=== PATIENT | male | born 1960 | race Caucasian/White ===

== ENCOUNTER 2017-11-15 18:54 | Emergency (ER) | payer OTHER ==
[2017-11-15] MEDS: NORCO, ANEXSIA 5/325MG TABLET (HYDROcodone/ACETAMINOPHEN) PO (20:47)
== END 2017-11-15 20:58 | disposition home or self-care (01) ==
LOC: M ED 18:54
DX: S86.912A Strain of unspecified muscle(s) and tendon(s) at lower leg level, left leg, initial encounter (principal); X50.9XXA Other and unspecified overexertion or strenuous movements or postures, initial encounter; Y92.89 Other specified places as the place of occurrence of the external cause; G43.909 Migraine, unspecified, not intractable, without status migrainosus; Z79.899 Other long term (current) drug therapy; Z88.2 Allergy status to sulfonamides; Z88.8 Allergy status to other drugs, medicaments and biological substances
CPT/HCPCS: 93971

== ENCOUNTER → 2018-05-09 | Outpatient (CLI) | payer OTHER ==
[~2018-05-09] MED LIST: CETI10TA; DICY20TA11; DOXY100C37; GASTROGRAFIN SOLUTION 30ML (Q9963) As Ordered ONE; ISOVUE-370 76% 100ML VIAL (Q9967) As Ordered ONE; SUMA6INJ16; VIAG100T
[2018-05-09 16:26] LABS: BASO % 0.4 % (0.0-1.0); EOS # 0.2 10^3/uL (0.0-0.50); EOS % 2.5 % (0.0-3.0); HEMATOCRIT 26.9 % (42.0-52.0); HEMOGLOBIN 8.2 g/dl (13.5-17.5); LYMPH # 1.9 10^3/uL (1.5-4.5); LYMPH % 19.7 % (24.0-44.0); MEAN CORPUSCULAR HEMOGLOBIN 23.9 pg (27.0-33.0); MEAN CORPUSCULAR HGB CONC 30.5 g/dl (32.0-36.5); MEAN CORPUSCULAR VOLUME 78.4 fl (80.0-96.0); MONO # 0.9 10^3/uL (0.0-0.8); MONO % 9.6 % (0.0-5.0); NEUTROPHILS # 6.5 10^3/uL (1.8-7.7); NEUTROPHILS % 67.5 % (36.0-66.0); PLATELET COUNT, AUTOMATED 371 10^3/uL (150-450); RED BLOOD COUNT 3.43 10^6/uL (4.30-6.10); WHITE BLOOD COUNT 9.6 10^3/uL (4.0-10.0)
[2018-05-09 16:53] LABS: ALBUMIN 3.4 GM/DL (3.2-5.2); ALT/SGPT 13 U/L (12-78); BILIRUBIN,DIRECT 0.1 MG/DL (0.0-0.2); BILIRUBIN,TOTAL 0.5 MG/DL (0.2-1.0); BLOOD UREA NITROGEN 12 MG/DL (7-18); CREATININE FOR GFR 0.84 MG/DL (0.70-1.30); FERRITIN 3 NG/ML (26-388); GLOMERULAR FILTRATION RATE > 60.0 (>56); IRON (FE) 15 UG/DL (65-175); PERCENT SATURATION 4.1 % (19.7-50.0); TOTAL IRON BINDING CAPACITY 370 UG/DL (250-450); TOTAL PROTEIN 6.5 GM/DL (6.4-8.2)
[2018-05-09 17:00] LABS: H PYLORI QUALITATIVE IgG NEGATIVE (NEGATIVE)
[2018-05-09 17:02] LABS: FOLATE 8.6 NG/ML
--- NOTE | 2018-05-10 09:57 | REP ---
Clinical: Epigastric pain. Technique: Axial contrast enhanced images from the lung bases to the pubic symphysis using oral (per protocol) and 100 ml Isovue 370 injury material with delayed images of the abdomen as well as coronal and sagittal re-formations. Findings: There is a irregular mucosal thickening involving the descending colon/cecum with significant adjacent adenopathy and mild stranding most compatible with acute neoplasm and correlation is required (images 80-98) Liver demonstrates innumerable scattered hypodensities consistent with cysts measuring up to approximately 2.7 cm in the left lateral segment and inferior right posterior segment. No obvious focal aggressive hepatic lesions are identified. Spleen, pancreas, gallbladder, bilateral adrenal glands and kidneys are normal. Pelvis demonstrates normal bladder and prostate/seminal vesicles. No pelvic fluid or ascites. No obvious retroperitoneal adenopathy. Abdominal aorta and vasculature without aneurysm or dissection. Musculoskeletal structures are intact. Lung bases are clear. Impression: 1. Irregular asymmetric mucosal thickening of the distal descending colon/cecum with significant adjacent adenopathy and stranding most compatible with acute colon cancer. Immediate attention and correlation is required. 2. Hepatic lesions remains stable on delayed imaging and most compatible with cysts. Electronically Signed by Mustapha Earl MD 05/10/2018 09:49 A
[2018-05-11 10:41] LABS: TISSUE TRANSGLUTAMINASE IgA <2 U/mL (0-3)
[2018-05-11 10:50] LABS: VITAMIN B12 LEVEL 344 PG/ML (232-1245)
== END ==
LOC: M RAD 15:15
PROVIDERS: ATTEND Internal Medicine Gastroenterology
DX: R10.13 Epigastric pain (principal)

== ENCOUNTER 2018-05-23 09:36 | Day surgery (SDC) | payer OTHER ==
[~2018-05-23] VITALS: Ht 188 cm; Wt 81.6 kg
[~2018-05-23 09:36] MED LIST changes: -CETI10TA; +CETI10TA PO; -DICY20TA11; +DICY20TA11 PO; -GASTROGRAFIN SOLUTION 30ML (Q9963) As Ordered ONE; -ISOVUE-370 76% 100ML VIAL (Q9967) As Ordered ONE; +LIDOCAINE 2% INJ 100 MG/5 ML SDV (FOR ANES.) As Ordered ONE; +PANT40TA3 PO; +PROPOFOL 200 MG/20 ML VIAL As Ordered ONE
[2018-05-23] MEDS ORDERED: NS 1,000 ML IV ONE (11:00)
--- NOTE | 2018-05-23 13:35 | ROOR ---
Patient Name: Basim Stockton Procedure Date: 05/23/2018 12:47 PM Date of : 1960 Age: 57 Room: [facility] Gender: Male Note Status: Finalized Procedure: Upper GI endoscopy Indications: Epigastric abdominal pain, Iron deficiency anemia Providers: Robin Campo MD Referring MD: CHEN SIDDIQUI MD Requesting Provider: Medicines: Monitored Anesthesia Care Complications: No immediate complications. Procedure: Pre-Anesthesia Assessment: - Prior to the procedure, a History and Physical was performed, and patient medications and allergies were reviewed. The patient is competent. The risks and benefits of the procedure and the sedation options and risks were discussed with the patient. All questions were answered and informed consent was obtained. Patient identification and proposed procedure were verified by the physician, the nurse and the anesthesiologist in the procedure room. Mental Status Examination: alert and oriented. Airway Examination: normal oropharyngeal airway and neck mobility. Respiratory Examination: clear to auscultation. CV Examination: normal. Prophylactic Antibiotics: The patient does not require prophylactic antibiotics. Prior Anticoagulants: The patient has taken no previous anticoagulant or antiplatelet agents. ASA Grade Assessment: II - A patient with mild systemic disease. After reviewing the risks and benefits, the patient was deemed in satisfactory condition to undergo the procedure. The anesthesia plan was to use monitored anesthesia care (MAC). Immediately prior to administration of medications, the patient was re-assessed for adequacy to receive sedatives. The heart rate, respiratory rate, oxygen saturations, blood pressure, adequacy of pulmonary ventilation, and response to care were monitored throughout the procedure. The physical status of the patient was re-assessed after the procedure. The Endoscope was introduced through the mouth, and advanced to the second part of duodenum. The upper GI endoscopy was accomplished without difficulty. The patient tolerated the procedure well. Findings: LA Grade A (one or more mucosal breaks less than 5 mm, not extending between tops of 2 mucosal folds) esophagitis with no bleeding was found in the distal esophagus. Biopsies were taken with a cold forceps for histology. Verification of patient identification for the specimen was done by the physician and nurse using the patient's name, date and medical record number. Estimated blood loss was minimal. The Z-line was irregular and was found 42 cm from the incisors. The entire examined stomach was normal. The duodenal bulb and second portion of the duodenum were normal. Biopsies for histology were taken with a cold forceps for evaluation of celiac disease. Impression: - LA Grade A reflux esophagitis. Rule out Araujo's esophagus. Biopsied. - Z-line irregular, 42 cm from the incisors. - Normal stomach. - Normal duodenal bulb and second portion of the duodenum. Biopsied. Recommendation: - Patient has a contact number available for emergencies. The signs and symptoms of potential delayed complications were discussed with the patient. Return to normal activities tomorrow. Written discharge instructions were provided to the patient. - Resume previous diet. - Continue present medications. - Await pathology results. - Based on the biopsy results you will receive a phone call from GI clinic in 2-3 weeks to review the pathology results AND/OR your results will be faxed to your Primary care physician. - Return to primary care physician. Robin Campo MD Robin Campo MD 05/23/2018 1:34:45 PM This report has been signed electronically. Number of Addenda: 0 Note Initiated On: 05/23/2018 12:47 PM Estimated Blood Loss: Estimated blood loss was minimal.
[2018-05-23 14:00] VITALS: BP 113/77
--- NOTE | 2018-05-23 14:10 | ROOR ---
Patient Name: Basim Stockton Procedure Date: 05/23/2018 12:47 PM Date of : 1960 Age: 57 Room: [facility] Gender: Male Note Status: Finalized Procedure: Colonoscopy Indications: Iron deficiency anemia, Abnormal CT of the GI tract Providers: Robin Campo MD Referring MD: CHEN SIDDIQUI MD Requesting Provider: Medicines: Monitored Anesthesia Care Complications: No immediate complications. Procedure: Pre-Anesthesia Assessment: - Prior to the procedure, a History and Physical was performed, and patient medications and allergies were reviewed. The patient is competent. The risks and benefits of the procedure and the sedation options and risks were discussed with the patient. All questions were answered and informed consent was obtained. Patient identification and proposed procedure were verified by the physician, the nurse and the anesthesiologist in the procedure room. Mental Status Examination: alert and oriented. Airway Examination: normal oropharyngeal airway and neck mobility. Respiratory Examination: clear to auscultation. CV Examination: normal. Prophylactic Antibiotics: The patient does not require prophylactic antibiotics. Prior Anticoagulants: The patient has taken no previous anticoagulant or antiplatelet agents. ASA Grade Assessment: II - A patient with mild systemic disease. After reviewing the risks and benefits, the patient was deemed in satisfactory condition to undergo the procedure. The anesthesia plan was to use monitored anesthesia care (MAC). Immediately prior to administration of medications, the patient was re-assessed for adequacy to receive sedatives. The heart rate, respiratory rate, oxygen saturations, blood pressure, adequacy of pulmonary ventilation, and response to care were monitored throughout the procedure. The physical status of the patient was re-assessed after the procedure. The Colonoscope was introduced through the anus and advanced to the terminal ileum, with identification of the appendiceal orifice and IC valve. The colonoscopy was performed without difficulty. The patient tolerated the procedure well. The quality of the bowel preparation was good. The terminal ileum, ileocecal valve, appendiceal orifice, and rectum were photographed. Scope insertion time was 3 minutes. Scope withdrawal time was 9 minutes. The total duration of the procedure was 12 minutes. Findings: The perianal and digital rectal examinations were normal. The terminal ileum appeared normal. A fungating, infiltrative and ulcerated partially obstructing large mass was found in the proximal ascending colon. The mass was circumferential. The mass measured five cm in length. In addition, its diameter measured fifteen mm. Oozing was present. This was biopsied with a cold forceps for histology. Verification of patient identification for the specimen was done by the physician and nurse using the patient's name, date and medical record number. Estimated blood loss was minimal. A 4 mm polyp was found in the descending colon. The polyp was sessile. The polyp was removed with a cold biopsy forceps. Resection and retrieval were complete. Three sessile polyps were found in the recto-sigmoid colon. The polyps were 3 to 4 mm in size. These polyps were removed with a cold biopsy forceps. Resection and retrieval were complete. Non-bleeding external and internal hemorrhoids were found during retroflexion. The hemorrhoids were medium-sized. Impression: - The examined portion of the ileum was normal. - Likely malignant partially obstructing tumor in the proximal ascending colon. Biopsied. - One 4 mm polyp in the descending colon, removed with a cold biopsy forceps. Resected and retrieved. - Three 3 to 4 mm polyps at the recto-sigmoid colon, removed with a cold biopsy forceps. Resected and retrieved. - Non-bleeding external and internal hemorrhoids. Recommendation: - Patient has a contact number available for emergencies. The signs and symptoms of potential delayed complications were discussed with the patient. Return to normal activities tomorrow. Written discharge instructions were provided to the patient. - Resume previous diet. - Continue present medications. - Await pathology results. Further management based on the biopsy results. - Repeat colonoscopy in 1 year for surveillance based on pathology results and Clinical course.. - Based on the biopsy results you will receive a phone call from GI clinic in 2-3 weeks to review the pathology results AND/OR your results will be faxed to your Primary care physician. - Return to primary care physician. Robin Campo MD Robin Campo MD 05/23/2018 2:09:50 PM This report has been signed electronically. Number of Addenda: 0 Note Initiated On: 05/23/2018 12:47 PM Estimated Blood Loss: Estimated blood loss was minimal.
== END 2018-05-23 14:33 | disposition home or self-care (01) ==
LOC: M OPP 09:36
PROVIDERS: ATTEND Internal Medicine Gastroenterology
DX: K64.8 Other hemorrhoids (principal); C18.2 Malignant neoplasm of ascending colon; K56.690 Other partial intestinal obstruction; D12.4 Benign neoplasm of descending colon; K63.5 Polyp of colon; D50.9 Iron deficiency anemia, unspecified; R93.3 Abnormal findings on diagnostic imaging of other parts of digestive tract; K21.0 Gastro-esophageal reflux disease with esophagitis; K22.8 Other specified diseases of esophagus; R10.13 Epigastric pain; M12.9 Arthropathy, unspecified; G43.909 Migraine, unspecified, not intractable, without status migrainosus; Z79.899 Other long term (current) drug therapy; Z88.8 Allergy status to other drugs, medicaments and biological substances; Z91.048 Other nonmedicinal substance allergy status; Z80.3 Family history of malignant neoplasm of breast; Z80.42 Family history of malignant neoplasm of prostate

== ENCOUNTER → 2019-09-18 | Outpatient (CLI) | payer OTHER ==
[~2019-09-18] MED LIST changes: +CIAL5TAB PO; -LIDOCAINE 2% INJ 100 MG/5 ML SDV (FOR ANES.) As Ordered ONE; -PROPOFOL 200 MG/20 ML VIAL As Ordered ONE; +TAMS1CAP17 PO
== END ==
LOC: M LABSMTC 09:41
PROVIDERS: ATTEND Anesthesiology
DX: Z03.818 Encounter for observation for suspected exposure to other biological agents ruled out (principal); Z11.59 Encounter for screening for other viral diseases
CPT/HCPCS: C9803; U0003

== ENCOUNTER 2019-09-21 08:09 | Day surgery (SDC) | payer OTHER ==
[~2019-09-21] VITALS: Ht 188 cm; Wt 85.9 kg
[~2019-09-21 08:09] MED LIST changes: +LIDOCAINE 2% 100MG/5ML SDV (FOR ANES.) As Ordered ONE; +propofoL 200 MG/20 ML VIAL As Ordered ONE
[2019-09-21] MEDS ORDERED: NS 1,000 ML IV ONE (08:30)
--- NOTE | 2019-09-21 09:31 | ROOR ---
Patient Name: Basim Stockton Procedure Date: 09/21/2019 8:46 AM Date of : 1960 Age: 59 Room: [facility] Gender: Male Note Status: Finalized Procedure: Colonoscopy Indications: High risk colon cancer surveillance: Personal history of colon cancer Providers: Robin Campo MD Referring MD: CHERYL Rapp Requesting Provider: Medicines: Monitored Anesthesia Care Complications: No immediate complications. Procedure: Pre-Anesthesia Assessment: - Prior to the procedure, a History and Physical was performed, and patient medications and allergies were reviewed. The patient is competent. The risks and benefits of the procedure and the sedation options and risks were discussed with the patient. All questions were answered and informed consent was obtained. Patient identification and proposed procedure were verified by the physician, the nurse and the anesthesiologist in the procedure room. Mental Status Examination: alert and oriented. Airway Examination: normal oropharyngeal airway and neck mobility. CV Examination: normal. Prophylactic Antibiotics: The patient does not require prophylactic antibiotics. Prior Anticoagulants: The patient has taken no previous anticoagulant or antiplatelet agents. ASA Grade Assessment: II - A patient with mild systemic disease. After reviewing the risks and benefits, the patient was deemed in satisfactory condition to undergo the procedure. The anesthesia plan was to use monitored anesthesia care (MAC). Immediately prior to administration of medications, the patient was re-assessed for adequacy to receive sedatives. The heart rate, respiratory rate, oxygen saturations, blood pressure, adequacy of pulmonary ventilation, and response to care were monitored throughout the procedure. The physical status of the patient was re-assessed after the procedure. The Colonoscope was introduced through the anus and advanced to the ileocolonic anastomosis. The colonoscopy was performed without difficulty. The patient tolerated the procedure well. The quality of the bowel preparation was good. The terminal ileum, ileocecal valve, appendiceal orifice, and rectum were photographed. Scope insertion time was 2 minutes. Scope withdrawal time was 8 minutes. The total duration of the procedure was 10 minutes. Findings: The perianal and digital rectal examinations were normal. The david-terminal ileum appeared normal. There was evidence of a prior functional end-to-end ileo-colonic anastomosis in the ascending colon. This was patent and was characterized by healthy appearing mucosa, an intact appearance and visible sutures. The anastomosis was traversed. Biopsies were taken with a cold forceps for histology. Verification of patient identification for the specimen was done by the physician and nurse using the patient's name, date and medical record number. Estimated blood loss was minimal. A few sessile polyps were found in the rectum. The polyps were 2 to 4 mm in size. These polyps were removed with a cold biopsy forceps. Resection and retrieval were complete. Non-bleeding external and internal hemorrhoids were found during retroflexion. The hemorrhoids were medium-sized. Impression: - The examined portion of the ileum was normal. - Patent functional end-to-end ileo-colonic anastomosis, characterized by healthy appearing mucosa, an intact appearance and visible sutures. Biopsied. - A few 2 to 4 mm polyps in the rectum, removed with a cold biopsy forceps. Resected and retrieved. - Non-bleeding external and internal hemorrhoids. Recommendation: - Patient has a contact number available for emergencies. The signs and symptoms of potential delayed complications were discussed with the patient. Return to normal activities tomorrow. Written discharge instructions were provided to the patient. - High fiber diet. - Continue present medications. - Await pathology results. - Repeat colonoscopy in 2 years for surveillance based on pathology results and for surveillance based on personal history of colon cancer. - Telephone GI clinic for pathology results in 2 weeks. - Return to primary care physician. Robin Campo MD Robin Campo MD 09/21/2019 9:30:18 AM Electronically signed by Robin Campo MD Number of Addenda: 0 Note Initiated On: 09/21/2019 8:46 AM Estimated Blood Loss: Estimated blood loss was minimal.
[2019-09-21 09:44] VITALS: BP 124/79
== END 2019-09-21 09:46 | disposition home or self-care (01) ==
LOC: M OPP 08:09
PROVIDERS: ATTEND Internal Medicine Gastroenterology
DX: Z85.038 Personal history of other malignant neoplasm of large intestine (principal); K64.8 Other hemorrhoids; K62.1 Rectal polyp; Z98.0 Intestinal bypass and anastomosis status; Z79.899 Other long term (current) drug therapy; Z88.8 Allergy status to other drugs, medicaments and biological substances; Z91.048 Other nonmedicinal substance allergy status; Z08 Encounter for follow-up examination after completed treatment for malignant neoplasm

== ENCOUNTER → 2020-01-08 | Outpatient (CLI) | payer OTHER ==
[~2020-01-08] MED LIST changes: -LIDOCAINE 2% 100MG/5ML SDV (FOR ANES.) As Ordered ONE; +PANT40TA29 PO; -PANT40TA3 PO; -propofoL 200 MG/20 ML VIAL As Ordered ONE
--- NOTE | 2020-01-08 23:31 | REPVR ---
PROCEDURE INFORMATION: Exam: MR Right Upper Extremity Other Than Joint Without Contrast, Forearm. Exam date and time: 01/08/2020 5:59 PM Age: 59 years old Clinical indication: Patient HX: Pain in RT mid forearm since chemo treatments >1year prior nki; Additional info: Pain in RT forearm TECHNIQUE: Imaging protocol: MR of the Right upper extremity other than joint without intravenous contrast. Exam focused on the Forearm. COMPARISON: No relevant prior studies available. FINDINGS: The examination is somewhat limited by motion degradation and the lack of intravenous contrast. There is no MR evidence of acute fracture or dislocation. Alignment is anatomic. Bone marrow signal is normal. The joint spaces are preserved. There are no erosive or destructive changes. No lytic or blastic lesion is seen. There is no significant effusion. The soft tissues are grossly unremarkable. No fluid collection or soft tissue mass is seen. There is no acute tendon or ligament injury. IMPRESSION: Limited, grossly unremarkable examination. Electronically signed by: Farhan Ruano On 01/08/2020 23:31:48 PM
== END ==
LOC: M RAD 15:49
PROVIDERS: ATTEND Physician Assistant Surgical
DX: M79.631 Pain in right forearm (principal)

== ENCOUNTER → 2021-07-24 | Outpatient (CLI) | payer OTHER ==
[~2021-07-24] MED LIST changes: +BUTA-198 PO; -DICY20TA11 PO; +DICY20TA20 PO; +DOXY-443; -DOXY100C37; +FEXO-112 PO; +LOPE2TAB14 PO; +ROSU10TA6 PO; -SUMA6INJ16; +SUMA6INJ25; +UNIS25TA3 PO
== END ==
LOC: M LABSMTC 10:08
PROVIDERS: ATTEND Anesthesiology
DX: Z01.812 Encounter for preprocedural laboratory examination (principal); Z20.822 Contact with and (suspected) exposure to COVID-19

== ENCOUNTER → 2021-07-31 | Outpatient (CLI) | payer OTHER | LOC: M LABSMTC 09:52 | PROVIDERS: ATTEND Anesthesiology | DX: Z01.812 Encounter for preprocedural laboratory examination (principal); Z20.822 Contact with and (suspected) exposure to COVID-19 ==

== ENCOUNTER 2021-08-05 07:01 | Day surgery (SDC) | payer OTHER ==
[~2021-08-05] VITALS: Ht 188 cm; Wt 94.3 kg
[~2021-08-05 07:01] MED LIST changes: +NS 1,000 ML IV ONE
[2021-08-05] MEDS ORDERED: CYMB1CAP5 PO (08:29)
[2021-08-05] MEDS ORDERED: fentaNYL 100 MCG/2 ML INJECTION As Ordered ONE (10:00)
[2021-08-05] MEDS ORDERED: propofoL 200 MG/20 ML VIAL As Ordered ONE (10:52)
[2021-08-05] MEDS ORDERED: LIDOCAINE 2% 100MG/5ML SDV (FOR ANES.) As Ordered ONE (10:52)
[2021-08-05 11:08] VITALS: BP 132/80
== END 2021-08-05 11:00 | disposition home or self-care (01) ==
LOC: M OPP 07:01
PROVIDERS: ATTEND Internal Medicine Gastroenterology
DX: Z85.038 Personal history of other malignant neoplasm of large intestine (principal); Z08 Encounter for follow-up examination after completed treatment for malignant neoplasm; K63.5 Polyp of colon; K57.30 Diverticulosis of large intestine without perforation or abscess without bleeding; K64.8 Other hemorrhoids; Z98.0 Intestinal bypass and anastomosis status; K21.00 Gastro-esophageal reflux disease with esophagitis, without bleeding; K22.89 Other specified disease of esophagus; K29.70 Gastritis, unspecified, without bleeding; R12 Heartburn; Z92.21 Personal history of antineoplastic chemotherapy; Z87.19 Personal history of other diseases of the digestive system; Z79.899 Other long term (current) drug therapy; Z88.1 Allergy status to other antibiotic agents; Z88.2 Allergy status to sulfonamides; Z91.048 Other nonmedicinal substance allergy status
CPT/HCPCS: 43239; 45385; 88305; J3010

== ENCOUNTER 2024-03-01 11:33 | Emergency (ER) | payer OTHER ==
[~2024-03-01] VITALS: Ht 188 cm; Wt 95.0 kg
[~2024-03-01 11:33] MED LIST changes: +CYMB1CAP5 PO; +DOXY-441; -DOXY-443; -NS 1,000 ML IV ONE; -ROSU10TA6 PO; +ROSU10TA61 PO; -SUMA6INJ25; +SUMA6PEN3
[2024-03-01 11:37] VITALS: BP 121/76; TEMP 96.6; O2SAT 99
[2024-03-01] MEDS ORDERED: LEVOTAB10 (11:48)
[2024-03-01] MEDS ORDERED: GABA-1172 (11:48)
[2024-03-01] MEDS: KETOROLAC 60MG 2ML VIAL IM ONE (15:00)
[2024-03-01] MEDS ORDERED: METH-1164 PO (15:04)
== END 2024-03-01 15:20 | disposition home or self-care (01) ==
LOC: M ED 11:33
DX: S13.4XXA Sprain of ligaments of cervical spine, initial encounter (principal); V49.40XA Driver injured in collision with unspecified motor vehicles in traffic accident, initial encounter; M50.31 Other cervical disc degeneration, high cervical region; G43.909 Migraine, unspecified, not intractable, without status migrainosus; C18.9 Malignant neoplasm of colon, unspecified; Z88.2 Allergy status to sulfonamides; Z88.8 Allergy status to other drugs, medicaments and biological substances; Z91.048 Other nonmedicinal substance allergy status; Z79.899 Other long term (current) drug therapy; Y92.410 Unspecified street and highway as the place of occurrence of the external cause; Y93.89 Activity, other specified; Y99.9 Unspecified external cause status